=== PATIENT | male | born 1985 | race Caucasian/White ===

== ENCOUNTER 2024-01-01 09:58 | Emergency (ER) | payer BC, OTHER ==
--- NOTE | 2024-01-01 10:20 | ERPHSYRPT ---
- History of Present Illness Time Seen by Provider: 01/01/24 10:08 Source: patient Exam Limitations: no limitations Physician History: This is a 38-year-old white male patient who was brought into the emergency department by private vehicle escorted by his spouse. [facility] Patient has a history of hypertension on lisinopril. He also takes sildenafil. In the last month he has noticed his blood pressure being elevated on 20 mg lisinopril daily. In the last month he has doubled that to 40 mg of lisinopril each day. He has not yet followed up with the [facility]. He did contact them and they told him to keep a log of his blood pressure readings. Patient is concerned because he had some readings of systolic blood pressure greater than 170 mmHg including today.. Patient states he is asymptomatic. Specifically, he denies headache, he denies chest pain, he denies visual changes. Timing/Duration: intermittent (Intermittent over the last 4 weeks) Severity: mild Associated Symptoms: denies symptoms Allergies/Adverse Reactions: No Known Drug Allergies Allergy (Unverified 01/01/24 10:13) Home Medications: Lisinopril 20 mg [Zestril 20 MG] 20 mg PO DAILY 01/01/24 [History] Sildenafil Citrate 100 mg PO DAILY 01/01/24 [History] Travel Risk - International Travel Have you traveled outside of the country in past 3 weeks: No - Emerging Infectious Disease Are you exhibiting symptoms associated with any current EIDs: No - Review of Systems Constitutional: No Symptoms Eyes: No Symptoms Ears, Nose, & Throat: No Symptoms Respiratory: No Symptoms Cardiac: No Symptoms Abdominal/Gastrointestinal: No Symptoms Genitourinary Symptoms: No Symptoms Musculoskeletal: No Symptoms Skin: No Symptoms Neurological: No Symptoms Psychological: No Symptoms Endocrine: No Symptoms Hematologic/Lymphatic: No Symptoms Immunological/Allergic: No Symptoms All Other Systems: Reviewed and Negative - Past Medical History Pertinent Past Medical History: Yes - Nursing Vital Signs Nursing Vital Signs: Initial Vital Signs Pulse Rate 78 01/01/24 10:17 Respiratory Rate 19 01/01/24 10:17 Blood Pressure 179/117 01/01/24 10:17 O2 Sat by Pulse Oximetry 99 01/01/24 10:17 Pain Scale Pain Intensity 0 - Physical Exam General Appearance: no apparent distress, alert, anxiety Eye Exam: PERRL/EOMI, eyes nml inspection Ears, Nose, Throat Exam: normal ENT inspection, moist mucous membranes Neck Exam: normal inspection, non-tender, supple, full range of motion Respiratory Exam: normal breath sounds, lungs clear, airway intact, No chest tenderness, No respiratory distress Cardiovascular Exam: regular rate/rhythm, normal heart sounds, normal peripheral pulses Gastrointestinal/Abdomen Exam: soft, normal bowel sounds, No tenderness Rectal Exam: not done Back Exam: normal inspection, normal range of motion, No CVA tenderness, No vertebral tenderness Extremity Exam: normal inspection, normal range of motion, pelvis stable Neurologic Exam: alert, oriented x 3, cooperative, foundation director II-XII nml as tested, nml cerebellar function, nml station & gait, sensation nml Skin Exam: normal color, warm, dry Lymphatic Exam: No adenopathy SpO2 Interpretation: normal O2 Delivery: Room Air - Course Nursing assessment & vital signs reviewed: Yes EKG Interpreted by Me: RATE (72), Sinus Rhythm, NORMAL AXIS, NORMAL INTERVALS, NORMAL QRS, NORMAL ST-T, Other Ordered Tests: Active Orders 24 hr Category Date Time Status Sugar Laboratory Assistant STAT Care 01/01/24 10:23 Active EKG-ER Only STAT Care 01/01/24 10:22 Active IV Insertion STAT Care 01/01/24 10:22 Active CBC W DIFF Stat Lab 01/01/24 10:32 Completed CMP Stat Lab 01/01/24 10:32 Results MAGNESIUM Stat Lab 01/01/24 10:32 Results Lab/Rad Data: Laboratory Result Diagrams 01/01/24 10:32 01/01/24 10:32 Laboratory Results 01/01/24 01/01/24 Range/Units 10:32 10:32 WBC 9.7 H (4.23-9.07) x10^3/uL RBC 5.22 (4.63-6.08) x10^6/uL Hgb 15.6 (13.7-17.5) g/dL Hct 44.4 (40.1-51.0) % MCV 85.1 (79.0-92.2) fL MCH 29.9 (25.7-32.2) pg MCHC 35.1 (32.3-36.5) g/dL RDW 12.3 (11.6-14.4) % Plt Count 206 (163-337) x10^3/uL MPV 11.8 (9.4-12.4) fL Gran % 55.1 (34.0-67.9) % Immature Gran % (Auto) 0.3 (0.001-0.429) % Nucleat RBC Rel Count 0.0 (0.00-0.2) % Eos # (Auto) 0.32 (0.04-0.54) x10^3/uL Immature Gran # (Auto) 0.03 (0.001-0.031) x10^3u/L Absolute Lymphs (auto) 3.11 (1.32-3.57) x10^3/uL Absolute Monos (auto) 0.82 (0.30-0.82) x10^3/uL Absolute Nucleated RBC 0.00 (0.00-0.012) x10^3u/L Lymphocytes % 32.2 (21.8-53.1) % Monocytes % 8.5 (5.3-12.2) % Eosinophils % 3.3 (0.8-7.0) % Basophils % 0.6 (0.2-1.2) % Absolute Granulocytes 5.31 (1.78-5.38) x10^3/uL Basophils # 0.06 (0.01-0.08) x10^3/uL Sodium Pending Sodium Direct 141 (138-146) mmol/L Potassium 3.4 L (3.5-4.9) mmol/L Chloride 105 (98-109) mmol/L Carbon Dioxide 25 (24-29) mmol/L Anion Gap Pending BUN Pending Venous BUN 12 (8-26) mg/dL Creatinine 1.1 (0.6-1.3) mg/dL Estimated GFR Pending Glucose 103 (70-105) mg/dL Calcium Pending Ionized Calcium 1.15 (1.12-1.32) mmol/L Magnesium Pending Total Bilirubin Pending AST Pending ALT Pending Alkaline Phosphatase Pending Serum Total Protein Pending Albumin Pending - Progress Progress: improved, re-examined Progress Note: 01/01/24 10:51 Medical decision making of the assignment of moderate complexity to this patient's medical issue today is based on review of the patient's past medical history, review of the patient's medication list, review patient drug allergy list, history present illness and physical findings on examination. The workup today is to place an intravenous line, draw CBC, CMP and magnesium level and to perform a twelve-lead EKG. Differential diagnosis includes but is not limited to asymptomatic hypertension, anxiety about health, electrolyte abnormalities, arrhythmia 01/01/24 12:03 I interpreted the patient's laboratory data results. Based on the laboratory data results, the patient does not have an acute or emergent medical issue. Clinically, the patient is still asymptomatic. His systolic blood pressure is now in the 120s without any intervention. Counseled pt/family regarding: lab results, diagnosis, need for follow-up Medical Desision Making - Independent Historian Additional History obtained from: Spouse - Diagnostic Testing Diagnostic test were ordered, analyzed, and reviewed by me: Yes - Risk of complications Minimal Risk: Minimal risk of morbidity - Departure Departure Disposition: Home Clinical Impression: Anxiety about health, High blood pressure Condition: Stable Critical Care Time: No Referrals: DOCTOR,NO FAMILY [Primary Care Provider] - Follow up/PCP as directed Additional Instructions: Continue your medication as prescribed. Continue your 3 times a day log of your blood pressure readings. Call your primary care provider today, 01/01/2024, to make arrangements for follow-up appointment for further evaluation management.
[2024-01-01 10:37] LABS: Absolute Neutrophil Ct (ANC) 5.31 x10^3/uL (1.78-5.38); BASOPHIL % 0.6 % (0.2-1.2); Basophil (Absolute #) 0.06 x10^3/uL (0.01-0.08); Eosinophil % 3.3 % (0.8-7.0); Eosinophil (Absolute #) 0.32 x10^3/uL (0.04-0.54); Hematocrit 44.4 % (40.1-51.0); Hemoglobin 15.6 g/dL (13.7-17.5); IMMATURE GRAN # 0.03 x10^3u/L (0.001-0.031); IMMATURE GRAN % 0.3 % (0.001-0.429); Lymphocyte (Absolute #) 3.11 x10^3/uL (1.32-3.57); Lymphocytes % 32.2 % (21.8-53.1); Mean Cell Volume 85.1 fL (79.0-92.2); Mean Corpuscular Hemoglobin 29.9 pg (25.7-32.2); Mean Corpuscular Hgb Concent. 35.1 g/dL (32.3-36.5); Mean Platelet Volume 11.8 fL (9.4-12.4); Monocyte (Absolute #) 0.82 x10^3/uL (0.30-0.82); Monocytes % 8.5 % (5.3-12.2); Neutrophil % 55.1 % (34.0-67.9); Platelet Count 206 x10^3/uL (163-337); Red Blood Count 5.22 x10^6/uL (4.63-6.08); Red Cell Distribution Width 12.3 % (11.6-14.4); White Blood Count 9.7 x10^3/uL (4.23-9.07)
[2024-01-01 11:05] LABS: ISTAT CL 105 mmol/L (98-109); ISTAT K 3.4 mmol/L (3.5-4.9); ISTAT NA 141 mmol/L (138-146)
[2024-01-01 11:06] LABS: ISTAT BUN 12 mg/dL (8-26); ISTAT CO2 25 mmol/L (24-29); ISTAT CREA 1.1 mg/dL (0.6-1.3); ISTAT GLUC 103 mg/dL (70-105); ISTAT iCA 1.15 mmol/L (1.12-1.32)
[2024-01-01 12:16] VITALS: BP 119/84; PULSE 54; RESP 16; O2SAT 98
== END 2024-01-01 12:19 | disposition home or self-care (01) ==
LOC: ED 09:58
DX: F45.9 Somatoform disorder, unspecified (principal); I10 Essential (primary) hypertension; Z79.899 Other long term (current) drug therapy
CPT/HCPCS: 36000; 36415; 80047; 80053; 83735; 85025; 93005; 93041; 99284